=== PATIENT | female | born 1970 | race Caucasian/White ===

== ENCOUNTER 2021-04-23 17:25 | Emergency (ER) | payer OTHER ==
[~2021-04-23] VITALS: Ht 160 cm; Wt 67.6 kg
[2021-04-23 17:25] VITALS: BP_SYST 161
[2021-04-23] MEDS ORDERED: predniSONE 20 MG TABLET PO ONE (17:45)
[2021-04-23 19:22] VITALS: BP_SYST 143
== END 2021-04-23 19:22 | disposition home or self-care (01) ==
LOC: SED 17:25
DX: T78.40XA Allergy, unspecified, initial encounter (principal); X58.XXXA Exposure to other specified factors, initial encounter
CPT/HCPCS: 99283; J7512